=== PATIENT | male | born 1980 | race African-American/Black ===

== ENCOUNTER 2016-11-05 20:02 | Emergency (ER) | payer OTHER ==
[~2016-11-05] VITALS: Ht 171.4 cm; Wt 70.3 kg
--- NOTE | 2016-11-05 21:11 | ED PSYCHIATRIC COMPLAINT ---
History of Present Illness General Chief Complaint: ETOH/Drug Related Complaint Stated Complaint: PT NEEDS FOR DETOX ALOCHOL Source: patient, family, old records Exam Limitations: no limitations Vital Signs & Intake/Output Vital Signs & Intake/Output Vital Signs Date Time Temp Pulse Resp B/P Pulse O2 O2 Flow FiO2 Ox Delivery Rate 11/06 0640 97.4 74 16 141/82 98 Room Air Room Air 11/06 0639 97.9 84 16 141/82 11/06 0030 97.4 90 16 113/56 11/06 0030 97.4 90 16 113/56 97 Room Air 11/05 2230 98.0 85 16 150/90 11/059 98.0 96 16 150/94 98 Room Air 11/055 Room Air 11/05 2010 97.9 90 20 159/100 97 Room Air ED Intake and Output 11/06 0000 11/05 1200 Intake Total Output Total Balance Patient 155 lb Weight Allergies Coded Allergies: NO KNOWN ALLERGIES (11/05/16) Reconcile Medications No Known Home Medications Triage Note: TRIAGE: PT TO ER WITH MOTHER C/C ETOH DETOX. 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 ADMITS TO DRINKING ABOUT 3-4 BEERS TODAY. ADMITS TO DAILY DRINKING "PROBABLY MORE THAN A 6 PACK EVERY DAY" X 3 YEARS. REPORTS HX OF SEIZURE X 1 R/T ETOH WITHDRAWAL AFTER NOT DRINKING FOR A WEEK. DENIES OTHER SUBSTANCE USE/ABUSE. -SI/HI. PT CALM/COOPERATIVE AT TRIAGE. Triage Nurses Notes Reviewed? yes Onset: Gradual Duration: week(s): Timing: recent history Severity: mild, moderate Severity Numbers: 6 Associated Symptoms: ingestion HPI: 36-year-old male with history of alcohol dependence presents with his mother for evaluation requesting alcohol detox. The patient states he drinks anywhere from 8-1024 ounce cans of beer a day. He states the last time he went through detox is roughly 3-4 years ago at which time he had a seizure. The patient denies suicidal or homicidal ideation. He denies depression anxiety. His last drink was just prior to arrival. He denies any other drug use no chest pain or shortness of breath no abdominal pain nausea vomiting or diarrhea (SOFY CASTILLO,ZAIRE) Past History Travel History Traveled to [place] past [place] No Medical History Any Pertinent Medical History? 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 No (ZAIRE COSTELLO) Review of Systems Review of Systems Constitutional: Reports: see HPI. All Other Systems: Reviewed and Negative Comments Review of systems: See HPI, All other systems negative. Constitutional, no chills no fever, no malaise HEENT: No visual changes no sore throat no congestion, Cardiovascular: No chest pain , no palpitation , Skin, no jaundice no rashes, no change in skin Respiratory: No dyspnea no cough no sputum GI: No nausea no vomiting, no diarrhea, : No dysuria Muscle skeletal: No joint pain, no back pain, no neck pain, Neurologic: No numbness no headache Psych: No stress Heme/endocrine: No bruising no bleeding Immunology: No lymphadenopathy (ZAIRE COSTELLO) Physical Exam Physical Exam General Appearance: well developed/nourished, alert, awake Neurological/Psychiatric: no motor/sensory deficits, awake, calm Comments: Well-developed well-nourished person in no acute distress HEENT: Normal EENT exam; PERRL, EOMI, HEAD is atraumatic. moist mucous membranes. Neck: Supple,, normal range of motion Back: Nontender, no CVA tenderness. Full range of motion Cardiovascular: Regular rate and rhythms no murmurs rubs Respiratory: No respiratory distress. Patient speaking in full complete sentences. Breath sounds clear to auscultation bilaterally: NO W/R/R Abdomen: Soft, nontender nondistended Extremity: No edema, full range of motion of extremities Neuro: Alert oriented x3, motor sensory normal, there were no obvious focal neurologic abnormalities. Skin: No appreciable rash on exposed skin, skin is warm and dry. Psych: Mood and affect is normal, memory and judgment is normal. SAD PERSONS Done? patient not suicidal (ZAIRE COSTELLO) Progress Differential Diagnosis: drug overdose, drug withdrawal, electrolyte abnormality Plan of Care: Orders Procedure Date/time Status Regular Diet 11/06 B Active CIWA 11/05 2099 Active URINE DRUG SCREEN FOR ER ONLY 11/05 2099 Complete ETHANOL 11/05 2099 Complete COMPREHENSIVE METABOLIC PANEL 11/05 2099 Complete CBC WITHOUT DIFFERENTIAL 11/05 2099 Complete Laboratory Tests 11/05/16 2145: Anion Gap 17 H, Estimated GFR > 60, BUN/Creatinine Ratio 11.8, Glucose 95, Calcium 9.7, Total Bilirubin 0.5, AST 103 H, ALT 53, Alkaline Phosphatase 100, Total Protein 8.8 H, Albumin 5.1 H, Globulin 3.7, Albumin/Globulin Ratio 1.4, CBC w Diff NO MAN DIFF REQ, RBC 4.30 L, MCV 97.0 H, MCH 33.1 H, RDW 13.2, MPV 7.4, Gran % 58.2, Lymphocytes % 31.2, Monocytes % 6.8, Eosinophils % 1.1, Basophils % 2.7 H, Absolute Granulocytes 2.5, Absolute Lymphocytes 1.3, Absolute Monocytes 0.3, Absolute Eosinophils 0, Absolute Basophils 0.1, PUBS MCHC 34.1, Serum Alcohol 392.0 11/05/160: Urine Opiates Screen < 100.00, Methadone Screen < 40, Barbiturate Screen < 60, Ur Phencyclidine Scrn < 6.00, Amphetamines Screen < 100, U Benzodiazepines Scrn < 85, Urine Cocaine Screen < 50, Urine Cannabis Screen < 5.00 Labs ordered old records reviewed discussed with patient and his mother plan of care Case was discussed with and signed out to dr moctezuma pending pt sobriety, ciwa (ZAIRE COSTELLO) Hand-Off Endorsed To: SWATI MOCTEZMUA MD Endorsed Time: 99 Pending: other (stephanieriety, ciwa) (ZAIRE COSTELLO) Hand-Off Endorsed To: KENIA MCKENZIE MD Endorsed Time: 07 Pending: other (sobriety, ciwa, case mgmt) (SWATI MOCTEZUMA MD) Comments: 11/06/2016 8:07:35 AM patient signed out to me by Dr. Moctezuma at [employer]. 11/06/2016 8:14:15 AM the patient is complaining of a headache and feeling tired but otherwise feels and appears well. Speech is clear and his gait is stable. He has no tremors. He does not meet criterion for inpatient detox according to the [facility] emergency medicine alcohol detoxification protocol. I will provide a list of detox facilities and contact information for a general medical doctor. (JONAH JOYA,KENIA Woods) Departure Departure Condition: Stable Prescriptions: Current Visit Scripts No Known Home Medications (ZAIRE COSTELLO) Departure Disposition: HOME OR SELF CARE Clinical Impression Primary Impression: Alcohol intoxication Qualifiers: Complication of substance-induced condition: uncomplicated Qualified Code: F10.120 - Alcohol abuse with intoxication, uncomplicated Secondary Impressions: Alcohol dependence Qualifiers: Substance use status: unspecified alcohol-induced disorder Qualified Code: F10.29 - Alcohol dependence with unspecified alcohol-induced disorder Referrals: SHASHANK CERON,LANDEN DIGGS APRN (PCP/Family) SUKI JOYA,KAYLIN MATOS MD,TACHO Woods. Additional Instructions: Try to cut down on your smoking. Contact a detox program as soon as possible. Arrange for a general medical evaluation with one of the physicians listed as soon as possible. Return if any concerns or sudden worsening. Departure Forms: Customer Survey DETOX FACILITIES LIST General Discharge Information (JONAH JOYA,KENIA Woods)
[2016-11-05 22:03] LABS: ABSOLUTE BASOPHIL COUNT 0.1 /CUMM (0.0-0.2); ABSOLUTE EOSINOPHIL COUNT 0 /CUMM (0.0-0.7); ABSOLUTE GRANULOCYTE CT 2.5 /CUMM (1.4-6.5); ABSOLUTE LYMPH COUNT 1.3 /CUMM (1.2-3.4); ABSOLUTE MONOCYTE COUNT 0.3 /CUMM (0.10-0.60); BASOPHIL % 2.7 % (0.0-2.0); EOSINOPHIL % 1.1 % (0-5); GRANULOCYTE % 58.2 % (42.2-75.2); HEMATOCRIT 41.8 % (42-52); MEAN CORPUSCULAR HGB 33.1 PG (27.0-31.0); MEAN CORPUSCULAR HGB CONC 34.1 G/DL (33.0-37.0); MEAN PLATELET VOLUME 7.4 FL (7.4-10.4); PLATELET COUNT 263 /CUMM (130-400); RBC DISTRIBUTION WIDTH 13.2 % (11.5-14.5); WHITE BLOOD CELL COUNT 4.2 /CUMM (4.8-10.8)
[2016-11-06 08:31] VITALS: BP 153/97
== END 2016-11-06 10:01 ==
LOC: ERH 20:02
PROVIDERS: Physician Assistant Medical
DX: F10.229 Alcohol dependence with intoxication, unspecified (principal)
CPT/HCPCS: 80307; G0480